=== PATIENT | female | born 1940 | race African-American/Black ===

== ENCOUNTER 2022-12-24 20:02 | Inpatient (IN) | payer BC, MEDICARE ==
[~2022-12-24] VITALS: Ht 165.1 cm; Wt 61.2 kg
[2022-12-24 20:08] VITALS: O2SAT 98
[2022-12-24 20:35] LABS: BASOPHILS % 1.3 % (0.0-2.0); EOSINOPHILS % 3.4 % (0.0-5.0); HEMATOCRIT. 31.2 % (36.0-48.0); HEMOGLOBIN. 9.6 g/dL (12.0-16.0); LYMPHOCYTES % 17.8 % (20.0-50.0); MEAN CORPUSCULAR HEMOGLOBIN 27.9 pg (28.0-32.0); MEAN CORPUSCULAR HGB CONC 30.8 g/dL (31.0-37.0); MEAN CORPUSCULAR VOLUME 90.4 fL (81.0-99.0); MEAN PLATELET VOLUME 7.6 fl (7.4-10.4); MONOCYTES % 8.5 % (2.0-8.0); PLATELET 302 x1000/uL (130-400); RED BLOOD CELL COUNT 3.45 mill/uL (4.2-5.4); RED CELL DISTRIBUTION WIDTH 26.4 % (11.6-14.6); WHITE BLOOD COUNT 4.6 x1000/uL (4.5-11.0)
[2022-12-24 20:44] LABS: ADD RBC MORPHOLOGY YES; DIFFERENTIAL COMMENT 1
[2022-12-24] MEDS ORDERED: TENECTEPLASE 50MG/VIAL IV ONE (20:45)
[2022-12-24 20:55] LABS: ALBUMIN 3.1 g/dL (3.4-5.0); ASPARTATE AMINOTRANSFERASE 37 IU/L (15-37); BILIRUBIN TOTAL 0.5 mg/dL (0.1-1.0); CALCIUM 8.6 mg/dL (8.5-10.1); CARBON DIOXIDE 23 mEq/L (21-32); CHLORIDE 111 mEq/L (98-107); CREATININE 0.9 mg/dL (0.6-1.3); ETHANOL BLOOD < 10 mg/dL (-10); GLUCOSE 131 mg/dL (70-105); INDEX HEMOLYSI 1 (1-3); INDEX ICTERIC 1 (1-4); INDEX LIPEMIC 1 (1-3); NT PRO B-TYPE NATRIURETIC PEP 3053 pg/mL (5-125); POTASSIUM 3.9 mEq/L (3.5-5.1); PROTEIN TOTAL 7.2 g/dL (6.0-8.3); SODIUM 141 mEq/L (136-145); UREA NITROGEN BLOOD 13 mg/dL (7-21)
[2022-12-24 20:59] LABS: INR 1.1; PROTHROMBIN TIME 11.5 sec (9.6-11.0)
[2022-12-24 21:06] LABS: TROPONIN I HIGH SENSITIVITY 350 ng/L (<54)
[2022-12-24 21:15] LABS: ALANINE AMINOTRANSFERASE 45 IU/L (13-61)
[2022-12-24] MEDS ORDERED: *TENECTEPLASE FOR AIS XX SCH (21:45)
[2022-12-24 22:09] LABS: ANISOCYTOSIS 3+; PLATELET ESTIMATE NORMAL
[2022-12-25] VITALS (60 sets, daily range): BP systolic 112–168; BP diastolic 62–121; PULSE 76–112; RESP 11–27; TEMP 97.8–98.9
[2022-12-25 04:36] LABS: CLARITY URINE CLEAR (CLEAR); COLOR URINE YELLOW (YELLOW); GLUCOSE URINE NEGATIVE (NEGATIVE); KETONES URINE NEGATIVE (NEGATIVE); LEUKOCYTE ESTERASE URINE NEGATIVE (NEGATIVE); NITRITE URINE NEGATIVE (NEGATIVE); OCCULT BLOOD URINE NEGATIVE (NEGATIVE); PH URINE 6.5 (4.5-8.0); PROTEIN URINE NEGATIVE (NEGATIVE); SPECIFIC GRAVITY URINE 1.047 (1.005-1.030)
[2022-12-25 05:23] LABS: *AMPHETAMINES SCREEN URINE NEGATIVE (NEGATIVE); *BARBITURATES SCREEN URINE NEGATIVE (NEGATIVE); *BENZODIAZEPINES SCREEN URINE NEGATIVE (NEGATIVE); *COCAINE SCREEN URINE NEGATIVE (NEGATIVE); CANNABINOID URINE SCREEN NEGATIVE (NEGATIVE); ECSTASY MDMA SCREEN URINE NEGATIVE (NEGATIVE); METHADONE URINE SCREEN NEGATIVE (NEGATIVE); OPIATES URINE SCREEN NEGATIVE (NEGATIVE); PHENCYCLIDINE URINE SCREEN NEGATIVE (NEGATIVE)
[2022-12-25] MEDS ORDERED: ACETAMINOPHEN 325MG TABLET PO PRN (12:00)
[2022-12-25] MEDS ORDERED: IPRATROPIUM/ALBUTEROL 0.5-3(2.5)MG/3ML NEB HHN PRN (12:00)
[2022-12-25] MEDS ORDERED: DOCUSATE SODIUM 100MG CAPSULE PO PRN (12:00)
[2022-12-25] MEDS ORDERED: ONDANSETRON HCL 4MG/2ML INJ IV PRN (12:00)
[2022-12-25] MEDS: PANTOPRAZOLE SODIUM 40 MG/VIAL IV SCH (13:42)
[2022-12-25 18:14] LABS: BASOPHILS % 2.7 % (0.0-2.0); EOSINOPHILS % 1.9 % (0.0-5.0); HEMATOCRIT. 31.4 % (36.0-48.0); HEMOGLOBIN. 9.9 g/dL (12.0-16.0); LYMPHOCYTES % 15.4 % (20.0-50.0); MEAN CORPUSCULAR HGB CONC 31.7 g/dL (31.0-37.0); MEAN CORPUSCULAR VOLUME 88.4 fL (81.0-99.0); MEAN PLATELET VOLUME 8.2 fl (7.4-10.4); MONOCYTES % 4.8 % (2.0-8.0); NEUTROPHILS % 75.2 % (40.0-76.0); PLATELET 296 x1000/uL (130-400); RED BLOOD CELL COUNT 3.55 mill/uL (4.2-5.4); RED CELL DISTRIBUTION WIDTH 25.9 % (11.6-14.6)
[2022-12-25 18:15] LABS: DIFFERENTIAL COMMENT 1
[2022-12-25 18:28] LABS: CHLORIDE 108 mEq/L (98-107); INDEX HEMOLYSI 1 (1-3); INDEX ICTERIC 1 (1-4); INDEX LIPEMIC 1 (1-3); SODIUM 138 mEq/L (136-145)
[2022-12-25 18:45] LABS: CALCIUM 8.8 mg/dL (8.5-10.1); CARBON DIOXIDE 23 mEq/L (21-32); CHOLESTEROL 160 mg/dL (<200); CREATINE KINASE 51 IU/L (26-192); CREATINE KINASE MB FRACTION < 1.0 ng/mL (0.5-3.6); CREATININE 0.8 mg/dL (0.6-1.3); FOLIC ACID (FOLATE) SERUM 18.8 ng/mL (>5.38); GLUCOSE 100 mg/dL (70-105); HDL CHOLESTEROL 59 mg/dL (40-59); IRON 50 ug/dL (50-175); LDL CHOLESTEROL 94 mg/dL (5-100); TOTAL IRON BINDING CAPACITY 292 ug/dL (250-450); TRIGLYCERIDE 91 mg/dL (0-150); UREA NITROGEN BLOOD 9 mg/dL (7-21)
[2022-12-25 20:18] LABS: TROPONIN I HIGH SENSITIVITY 210 ng/L (<54)
[2022-12-25] MEDS ORDERED: ATORVASTATIN CALCIUM 40MG TABLET PO SCH (21:00)
[2022-12-25] MEDS ORDERED: FAMOTIDINE 20MG TABLET PO SCH (21:00)
[2022-12-26] VITALS (22 sets, daily range): BP systolic 122–171; BP diastolic 49–103; PULSE 81–97; RESP 4–21; TEMP 97.8–98.8
[2022-12-26] MEDS: PANTOPRAZOLE SODIUM 40 MG/VIAL IV SCH (10:09)
[2022-12-26 12:38] LABS: INR 1.1; PROTHROMBIN TIME 11.4 sec (9.6-11.0)
[2022-12-26 12:40] LABS: CHLORIDE 107 mEq/L (98-107); INDEX HEMOLYSI 1 (1-3); INDEX ICTERIC 1 (1-4); INDEX LIPEMIC 1 (1-3); POTASSIUM 3.4 mEq/L (3.5-5.1); SODIUM 138 mEq/L (136-145)
[2022-12-26 12:42] LABS: CALCIUM 8.6 mg/dL (8.5-10.1)
[2022-12-26 12:51] LABS: CARBON DIOXIDE 24 mEq/L (21-32); CREATININE 0.8 mg/dL (0.6-1.3); GLUCOSE 126 mg/dL (70-105); UREA NITROGEN BLOOD 9 mg/dL (7-21)
[2022-12-26 12:55] LABS: TROPONIN I HIGH SENSITIVITY 164 ng/L (<54)
[2022-12-26 12:59] LABS: HEMATOCRIT. 30.8 % (36.0-48.0); HEMOGLOBIN. 9.8 g/dL (12.0-16.0); MEAN CORPUSCULAR HEMOGLOBIN 28.3 pg (28.0-32.0); MEAN CORPUSCULAR VOLUME 88.4 fL (81.0-99.0); MEAN PLATELET VOLUME 8.1 fl (7.4-10.4); PLATELET 268 x1000/uL (130-400); RED BLOOD CELL COUNT 3.48 mill/uL (4.2-5.4); WHITE BLOOD COUNT 5.7 x1000/uL (4.5-11.0)
[2022-12-26 13:36] LABS: DIFFERENTIAL COMMENT 1
[2022-12-26 13:40] LABS: ANISOCYTOSIS 2+; PLATELET ESTIMATE NORMAL; TARGET CELLS FEW
[2022-12-26] MEDS: ASPIRIN 81MG TABLET PO SCH (14:21)
[2022-12-26] MEDS: CLOPIDOGREL 75MG TABLET PO SCH (14:21)
[2022-12-26] MEDS: ACETAMINOPHEN 325MG TABLET PO PRN ×2 (17:43→20:57)
[2022-12-26] MEDS: ATORVASTATIN CALCIUM 40MG TABLET PO SCH (20:56)
[2022-12-27] VITALS: BP 148/75; PULSE 80; RESP 18; TEMP 97.9
[2022-12-27 04:00] VITALS: BP 148/86; PULSE 90; RESP 18; TEMP 98.2
[2022-12-27 08:00] VITALS: BP 142/100; PULSE 94; RESP 20; TEMP 97.1
[2022-12-27] MEDS: ASPIRIN 81MG TABLET PO SCH (08:56)
[2022-12-27] MEDS: PANTOPRAZOLE SODIUM 40 MG/VIAL IV SCH (08:56)
[2022-12-27] MEDS: CLOPIDOGREL 75MG TABLET PO SCH (08:57)
[2022-12-27] MEDS: ACETAMINOPHEN 325MG TABLET PO PRN (08:57)
[2022-12-27 12:00] VITALS: BP 154/81; PULSE 90; RESP 20; TEMP 99.3
[2022-12-27 16:00] VITALS: BP 165/94; PULSE 94; RESP 20; TEMP 98.1
[2022-12-27] MEDS: AMLODIPINE 5MG TABLET PO SCH (19:30)
[2022-12-27 20:00] VITALS: BP 163/84; PULSE 98; RESP 16; TEMP 97.7
[2022-12-27] MEDS: ATORVASTATIN CALCIUM 40MG TABLET PO SCH (21:04)
[2022-12-28] VITALS: BP 148/85; PULSE 101; RESP 15; TEMP 97.9
[2022-12-28 04:00] VITALS: BP 133/66; PULSE 97; RESP 17; TEMP 98.5
[2022-12-28 06:47] VITALS: BP 133/66; PULSE 97; RESP 17; TEMP 98.5
[2022-12-28] MEDS: PANTOPRAZOLE SODIUM 40 MG/VIAL IV SCH (09:17)
[2022-12-28 09:19] VITALS: BP 150/86; PULSE 85; RESP 18; TEMP 98.2
[2022-12-28] MEDS: ASPIRIN 81MG TABLET PO SCH (09:29)
[2022-12-28] MEDS: CLOPIDOGREL 75MG TABLET PO SCH (09:30)
[2022-12-28] MEDS: AMLODIPINE 5MG TABLET PO SCH (09:30)
[2022-12-28] MEDS: ACETAMINOPHEN 325MG TABLET PO PRN (09:31)
[2022-12-28 12:13] LABS: HEMATOCRIT. 29.7 % (36.0-48.0); HEMOGLOBIN. 9.5 g/dL (12.0-16.0); MEAN CORPUSCULAR HEMOGLOBIN 28.6 pg (28.0-32.0); MEAN CORPUSCULAR HGB CONC 32.1 g/dL (31.0-37.0); MEAN CORPUSCULAR VOLUME 89.2 fL (81.0-99.0); MEAN PLATELET VOLUME 7.9 fl (7.4-10.4); PLATELET 271 x1000/uL (130-400); RED BLOOD CELL COUNT 3.32 mill/uL (4.2-5.4); RED CELL DISTRIBUTION WIDTH 25.8 % (11.6-14.6); WHITE BLOOD COUNT 6.5 x1000/uL (4.5-11.0)
[2022-12-28 12:38] LABS: DIFFERENTIAL COMMENT 1
[2022-12-28 13:07] LABS: CHLORIDE 103 mEq/L (98-107); INDEX HEMOLYSI 1 (1-3); INDEX ICTERIC 1 (1-4); INDEX LIPEMIC 1 (1-3); POTASSIUM 4.1 mEq/L (3.5-5.1); SODIUM 133 mEq/L (136-145)
[2022-12-28 13:13] LABS: CARBON DIOXIDE 23 mEq/L (21-32); CREATININE 0.8 mg/dL (0.6-1.3); GLUCOSE 204 mg/dL (70-105)
[2022-12-28 15:40] LABS: UREA NITROGEN BLOOD 14 mg/dL (7-21)
[2022-12-28 16:42] LABS: ANISOCYTOSIS 4+; PLATELET ESTIMATE NORMAL
[2022-12-28 20:00] VITALS: BP 147/75; PULSE 96; RESP 20; TEMP 98.7
[2022-12-28] MEDS: ATORVASTATIN CALCIUM 40MG TABLET PO SCH (20:38)
[2022-12-29] VITALS: BP_SYST 139; BP_SYST 140; BP_DIAS 74; BP_DIAS 78; PULSE 79; PULSE 84; RESP 18; RESP 20; TEMP 97.8; TEMP 98.4
[2022-12-29 08:00] VITALS: BP 125/67; PULSE 85; RESP 20; TEMP 98
[2022-12-29] MEDS: PANTOPRAZOLE SODIUM 40 MG/VIAL IV SCH (08:58)
[2022-12-29] MEDS ORDERED: METOPROLOL TARTRATE 50MG TABLET PO SCH (09:00)
[2022-12-29] MEDS ORDERED: AMIODARONE HCL 900 MG in DEXT 5% WATER 482 ML IV SCH (09:00)
[2022-12-29] MEDS: ACETAMINOPHEN 325MG TABLET PO PRN (09:32)
[2022-12-29] MEDS: CLOPIDOGREL 75MG TABLET PO SCH (09:32)
[2022-12-29] MEDS: ASPIRIN 81MG TABLET PO SCH (09:32)
[2022-12-29] MEDS: LOSARTAN POTASSIUM 50 MG TABLET PO SCH (09:32)
[2022-12-29] MEDS: AMIODARONE HCL 200 MG TABLET PO SCH ×2 (09:32→21:00)
[2022-12-29] MEDS: CARVEDILOL 6.25 MG TABLET PO SCH ×2 (09:36→21:00)
[2022-12-29] MEDS: ENOXAPARIN 40MG/0.4ML SYR SUBCUT SCH (09:37)
[2022-12-29 12:00] VITALS: BP 116/71; PULSE 81; RESP 20; TEMP 98.2
[2022-12-29 16:00] VITALS: BP 122/69; PULSE 79; RESP 20; TEMP 98
[2022-12-29 17:23] LABS: HEMOGLOBIN. 9.5 g/dL (12.0-16.0); MEAN CORPUSCULAR HEMOGLOBIN 28.2 pg (28.0-32.0); MEAN CORPUSCULAR HGB CONC 31.5 g/dL (31.0-37.0); MEAN CORPUSCULAR VOLUME 89.5 fL (81.0-99.0); MEAN PLATELET VOLUME 8.2 fl (7.4-10.4); PLATELET 272 x1000/uL (130-400); RED BLOOD CELL COUNT 3.35 mill/uL (4.2-5.4); RED CELL DISTRIBUTION WIDTH 26.3 % (11.6-14.6); WHITE BLOOD COUNT 7.1 x1000/uL (4.5-11.0)
[2022-12-29 17:26] LABS: DIFFERENTIAL COMMENT 1
[2022-12-29 17:27] LABS: CHLORIDE 105 mEq/L (98-107); INDEX HEMOLYSI 1 (1-3); INDEX ICTERIC 1 (1-4); INDEX LIPEMIC 1 (1-3); POTASSIUM 3.5 mEq/L (3.5-5.1); SODIUM 137 mEq/L (136-145)
[2022-12-29 17:31] LABS: CALCIUM 8.6 mg/dL (8.5-10.1); CARBON DIOXIDE 21 mEq/L (21-32); CREATININE 0.7 mg/dL (0.6-1.3); GLUCOSE 91 mg/dL (70-105); UREA NITROGEN BLOOD 12 mg/dL (7-21)
[2022-12-29 18:34] LABS: ANISOCYTOSIS 4+; PLATELET ESTIMATE NORMAL
[2022-12-29 20:00] VITALS: BP 135/69; PULSE 86; RESP 16; TEMP 96.9
[2022-12-29] MEDS ORDERED: CARVEDILOL 6.25 MG TABLET PO SCH (21:00)
[2022-12-29] MEDS: ATORVASTATIN CALCIUM 40MG TABLET PO SCH (21:00)
[2022-12-30] VITALS: BP 145/91; PULSE 88; RESP 16; TEMP 96.9
[2022-12-30 04:00] VITALS: BP 141/80; PULSE 97; RESP 16; TEMP 96.8
[2022-12-30 08:00] VITALS: BP 120/70; PULSE 84; RESP 18; TEMP 97.7
[2022-12-30] MEDS: LOSARTAN POTASSIUM 50 MG TABLET PO SCH (09:00)
[2022-12-30] MEDS: PANTOPRAZOLE SODIUM 40 MG/VIAL IV SCH (09:00)
[2022-12-30] MEDS ORDERED: CARVEDILOL 12.5MG TABLET PO SCH (10:00)
[2022-12-30] MEDS: ENOXAPARIN 40MG/0.4ML SYR SUBCUT SCH (10:00)
[2022-12-30] MEDS: ASPIRIN 81MG TABLET PO SCH (10:31)
[2022-12-30] MEDS: AMIODARONE HCL 200 MG TABLET PO SCH (10:32)
[2022-12-30] MEDS: CLOPIDOGREL 75MG TABLET PO SCH (10:32)
[2022-12-30 12:00] VITALS: BP 100/60; PULSE 73; RESP 18; TEMP 97.5
[2022-12-30 13:04] VITALS: BP 108/60; PULSE 73; TEMP 97.7
== END 2022-12-30 18:10 | disposition home or self-care (01) | DRG 62 ==
LOC: ER 20:02 → MICUSO 22:10 → EDBEDREQ 22:17 → EDBEDREQSVC 22:17 → MICUSO 12-25 09:26 → 8WST 12-26 15:06
PROVIDERS: ADMIT Internal Medicine; ATTEND Internal Medicine
PROC: 3E05317 Introduction of Other Thrombolytic into Peripheral Artery, Percutaneous Approach (ICD-10-PCS; principal; 2022-12-24)
PROC: 4A00X4Z Measurement of Central Nervous Electrical Activity, External Approach (ICD-10-PCS; 2022-12-26)
DX: I63.9 Cerebral infarction, unspecified (principal); I42.0 Dilated cardiomyopathy; I47.20 Ventricular tachycardia, unspecified; I10 Essential (primary) hypertension; D64.9 Anemia, unspecified; R47.01 Aphasia; R77.8 Other specified abnormalities of plasma proteins; E78.5 Hyperlipidemia, unspecified; I27.20 Pulmonary hypertension, unspecified
CPT/HCPCS: 36415; 70496; 70498; 70551; 71045; 80048; 80053; 80061; 80305; 80320; 81003; 82550; 82553; 82607; 82728; 82746; 82962; 83036; 83540; 83550; 83721; 83735; 83880; 84443; 84484; 85025; 93005; 93306; 95816; 97116; 97162; 97165; 99291; C9113; J1650; J2405; J2997; G0480

== ENCOUNTER 2023-10-04 03:51 | Inpatient (IN) | payer BC, MEDICARE ==
[2023-10-04] VITALS (65 sets, daily range): BP systolic 85–144; BP diastolic 58–99; PULSE 79–111; RESP 12–50; TEMP 97.4–98
[~2023-10-04] VITALS: Ht 165.1 cm; Wt 59.6 kg
[2023-10-04 04:14] LABS: BASOPHILS % 0.5 % (0.0-2.0); EOSINOPHILS % 0.3 % (0.0-5.0); HEMATOCRIT. 31.9 % (36.0-48.0); HEMOGLOBIN. 10.3 g/dL (12.0-16.0); LYMPHOCYTES % 16.2 % (20.0-50.0); MEAN CORPUSCULAR HEMOGLOBIN 29.2 pg (28.0-32.0); MEAN CORPUSCULAR HGB CONC 32.3 g/dL (31.0-37.0); MEAN CORPUSCULAR VOLUME 90.5 fL (81.0-99.0); MEAN PLATELET VOLUME 8.1 fl (7.4-10.4); MONOCYTES % 2.7 % (2.0-8.0); NEUTROPHILS % 80.3 % (40.0-76.0); PLATELET 295 x1000/uL (130-400); RED BLOOD CELL COUNT 3.53 mill/uL (4.2-5.4); RED CELL DISTRIBUTION WIDTH 24.3 % (11.6-14.6); WHITE BLOOD COUNT 12.5 x1000/uL (4.5-11.0)
[2023-10-04] MEDS: HEPARIN 5000 UNITS/ML VIAL IV ONE (04:16)
[2023-10-04 04:19] LABS: CHLORIDE 107 mEq/L (98-107); POTASSIUM 4.1 mEq/L (3.5-5.1); SODIUM 139 mEq/L (136-145)
[2023-10-04 04:20] LABS: CALCIUM 9.3 mg/dL (8.7-10.4); CARBON DIOXIDE 19 mEq/L (21-32)
[2023-10-04 04:25] LABS: DIFFERENTIAL COMMENT 1; GLUCOSE 245 mg/dL (70-105); PARTIAL THROMBOPLASTIN TIME 22.8 sec (23.4-31.0); PROTHROMBIN TIME 11.3 sec (9.6-11.0); UREA NITROGEN BLOOD 9 mg/dL (9-23)
[2023-10-04] MEDS ORDERED: FENTANYL CITRATE/PF 50MCG/ML 2ML VIAL ONE (04:28)
[2023-10-04] MEDS ORDERED: EPINEPHRINE 0.1MG/ML (1:10,000) 10ML SYR ONE (04:28)
[2023-10-04] MEDS ORDERED: MIDAZOLAM HCL 2 MG/2 ML VIAL ONE (04:28)
[2023-10-04] MEDS ORDERED: HEPARIN 1000 UNITS/ML 10ML ONE (04:28)
[2023-10-04] MEDS ORDERED: IODIXANOL 320MG/ML 100 ML BOTTLE IV ONE ×2 (04:29→05:10)
[2023-10-04] MEDS ORDERED: LIDOCAINE HCL 1% 20ML VIAL (Pyxis) INJ ONE (04:29)
[2023-10-04] MEDS ORDERED: ATROPINE SULFATE 1MG/10ML SYR ONE (04:29)
[2023-10-04 04:32] LABS: TROPONIN I HIGH SENSITIVITY 101 ng/L (3.0-34)
[2023-10-04] MEDS ORDERED: EPTIFIBATIDE 100 ML IV ONE (05:13)
[2023-10-04] MEDS ORDERED: EPTIFIBATIDE 2 MG/ML 10ML VIAL IV ONE ×2 (05:13→05:20)
[2023-10-04] MEDS ORDERED: TICAGRELOR 90 MG TABLET PO ONE (05:29)
[2023-10-04] MEDS ORDERED: DOCUSATE SODIUM 100MG CAPSULE PO PRN (05:30)
[2023-10-04] MEDS ORDERED: DEXTROSE 50% WATER 50ML SYRINGE IV PRN (05:30)
[2023-10-04] MEDS ORDERED: IPRATROPIUM/ALBUTEROL 0.5-3(2.5)MG/3ML NEB HHN PRN (05:30)
[2023-10-04] MEDS ORDERED: ONDANSETRON HCL 4MG/2ML INJ IV PRN ×2 (05:30→06:00)
[2023-10-04] MEDS: EPTIFIBATIDE 100 ML IV SCH (06:00)
[2023-10-04] MEDS ORDERED: ATROPINE SULFATE 1MG/10ML SYR IV PRN (06:00)
[2023-10-04] MEDS ORDERED: ACETAMINOPHEN 325MG TABLET PO PRN (06:00)
[2023-10-04] MEDS: BLOOD SUGAR DIAGNOSTIC STRIP TEST SCH (07:50)
[2023-10-04] MEDS: CARVEDILOL 6.25 MG TABLET PO SCH (08:14)
[2023-10-04] MEDS: ASPIRIN 81MG EC TABLET PO SCH (08:14)
[2023-10-04] MEDS: CLOPIDOGREL 75MG TABLET PO SCH (08:14)
[2023-10-04] MEDS: SODIUM CHLORIDE 0.45% 1,000 ML IV NR (08:14)
[2023-10-04] MEDS: INSULIN LISPRO 100 UNITS/ML SUBCUT SCH (08:16)
[2023-10-04] MEDS: MORPHINE SULFATE 2 MG/ML CPJ (NOT FOR IM USE) IV PRN (13:11)
[2023-10-04] MEDS: NITROGLYCERIN OINT 1GM/INCH UDPKT TD SCH (13:45)
[2023-10-04] MEDS: FUROSEMIDE 40MG/4ML VIAL IVP NR (16:23)
[2023-10-04] MEDS: ATORVASTATIN CALCIUM 40MG TABLET PO SCH (21:30)
[2023-10-05] VITALS (83 sets, daily range): BP systolic 62–113; BP diastolic 15–71; PULSE 74–102; RESP 14–43; TEMP 97.1–98
[2023-10-05] MEDS: GUAIFENESIN 200MG/10ML SUGAR FREE UDC PO PRN (03:01)
[2023-10-05 06:06] LABS: HEMOGLOBIN 8.2 g/dL (12.0-16.0); MEAN CORPUSCULAR HEMOGLOBIN 29.3 pg (28.0-32.0); MEAN CORPUSCULAR HGB CONC 31.7 g/dL (31.0-37.0); MEAN CORPUSCULAR VOLUME 92.5 fL (81.0-99.0); PLATELET 232 x1000/uL (130-400); RED BLOOD CELL COUNT 2.81 mill/uL (4.2-5.4); RED CELL DISTRIBUTION WIDTH 24.4 % (11.6-14.6)
[2023-10-05 06:15] LABS: CHLORIDE 103 mEq/L (98-107); POTASSIUM 4.4 mEq/L (3.5-5.1); SODIUM 137 mEq/L (136-145)
[2023-10-05 06:16] LABS: CALCIUM 9.7 mg/dL (8.7-10.4); CARBON DIOXIDE 18 mEq/L (21-32)
[2023-10-05 06:21] LABS: GLUCOSE 174 mg/dL (70-105); PROTEIN TOTAL 6.3 g/dL (6.0-8.3); TRIGLYCERIDE 86 mg/dL (0-150); UREA NITROGEN BLOOD 24 mg/dL (9-23)
[2023-10-05 06:22] LABS: LDL CHOLESTEROL 92 mg/dL (5-100); T4 FREE 1.17 ng/dL (0.89-1.76)
[2023-10-05 06:23] LABS: ALANINE AMINOTRANSFERASE 282 IU/L (10-49); ALBUMIN 3.5 g/dL (3.2-4.8); ASPARTATE AMINOTRANSFERASE 740 IU/L (<34); BILIRUBIN TOTAL 1.3 mg/dL (0.1-1.0); CHOLESTEROL 152 mg/dL (<200); HDL CHOLESTEROL 47 mg/dL (>65); PHOSPHORUS 4.9 mg/dL (2.5-4.9); THYROID STIMULATING HORMONE 3.66 uIU/mL (0.55-4.78)
[2023-10-05 06:24] LABS: CREATININE 1.4 mg/dL (0.6-1.0)
[2023-10-05 06:25] LABS: FOLIC ACID (FOLATE) SERUM 9.37 ng/mL (>5.38); VITAMIN B12 SERUM 283 pg/mL (211-911)
[2023-10-05] MEDS: PANTOPRAZOLE 40MG DR TABLET PO SCH (09:03)
[2023-10-05 14:41] LABS: BG BASE EXCESS -4.8 mmol/L (-2.0-2.0); BG CARBOXYHEMOGLOBIN 0.4 % (0.5-1.5); BG DEOXYHEMOGLOBIN 1.6 % (0.0-5.0); BG FRACTION INSPIRED OXYGEN 38; BG HCO3 ACT 18.6 mmol/L (22.0-26.0); BG METHEMOGLOBIN 0.3 % (0.0-1.5); BG OXYGEN SATURATION 98.4 % (92.0-98.5); BG OXYHEMOGLOBIN 97.7 % (94.0-97.0); BG PCO2 28.6 mmHg (35.0-45.0); BG PH 7.432 (7.350-7.450); BG PO2 120.8 mmHg (75.0-100.0); BG SAMPLE SITE RIGHT BRACHIAL; BG TOTAL HEMOGLOBIN 9.2 g/dL (12.0-18.0); BG VENT MODE NASAL CANNULA
[2023-10-06] VITALS (40 sets, daily range): BP systolic 89–120; BP diastolic 24–94; PULSE 83–103; RESP 15–33; TEMP 97.5–97.6
[2023-10-06 05:47] LABS: HEMATOCRIT. 25.9 % (36.0-48.0); HEMOGLOBIN. 8.1 g/dL (12.0-16.0); MEAN CORPUSCULAR HEMOGLOBIN 28.8 pg (28.0-32.0); MEAN CORPUSCULAR HGB CONC 31.2 g/dL (31.0-37.0); MEAN CORPUSCULAR VOLUME 92.2 fL (81.0-99.0); MEAN PLATELET VOLUME 8.5 fl (7.4-10.4); PLATELET 238 x1000/uL (130-400); RED BLOOD CELL COUNT 2.81 mill/uL (4.2-5.4); RED CELL DISTRIBUTION WIDTH 25.1 % (11.6-14.6); WHITE BLOOD COUNT 14.9 x1000/uL (4.5-11.0)
[2023-10-06 06:02] LABS: DIFFERENTIAL COMMENT 1
[2023-10-06 06:07] LABS: POTASSIUM 3.7 mEq/L (3.5-5.1)
[2023-10-06 06:09] LABS: CALCIUM 9.6 mg/dL (8.7-10.4)
[2023-10-06 06:13] LABS: CREATININE 1.1 mg/dL (0.6-1.0)
[2023-10-06] MEDS ORDERED: THROAT LOZENGES-BENZOCAINE/MENTH/CETYLPYRD CL LOZENGES MM PRN (12:15)
[2023-10-06] MEDS: MAGNESIUM 1 G PREMIX 100 ML IV NR (15:58)
[2023-10-06 16:17] LABS: ANISOCYTOSIS 2+; PLATELET ESTIMATE NORMAL
[2023-10-07] VITALS (22 sets, daily range): BP systolic 87–118; BP diastolic 54–99; PULSE 58–107; RESP 15–50; TEMP 97.4–97.8
[2023-10-07 07:11] LABS: HEMATOCRIT 24.6 % (36.0-48.0); MEAN CORPUSCULAR HEMOGLOBIN 29.3 pg (28.0-32.0); MEAN CORPUSCULAR HGB CONC 32.4 g/dL (31.0-37.0); MEAN CORPUSCULAR VOLUME 90.5 fL (81.0-99.0); PLATELET 242 x1000/uL (130-400); RED BLOOD CELL COUNT 2.72 mill/uL (4.2-5.4); RED CELL DISTRIBUTION WIDTH 23.9 % (11.6-14.6); WHITE BLOOD COUNT 13.7 x1000/uL (4.5-11.0)
[2023-10-07 07:30] LABS: CHLORIDE 108 mEq/L (98-107); POTASSIUM 3.8 mEq/L (3.5-5.1); SODIUM 138 mEq/L (136-145)
[2023-10-07 07:31] LABS: CALCIUM 9.5 mg/dL (8.7-10.4); CARBON DIOXIDE 22 mEq/L (21-32)
[2023-10-07 07:36] LABS: GLUCOSE 169 mg/dL (70-105); UREA NITROGEN BLOOD 33 mg/dL (9-23)
[2023-10-07] MEDS ORDERED: EPINEPHRINE 5 MG in SODIUM CHLORIDE 0.9% 245 ML IV PRN (15:00)
[2023-10-07] MEDS: FUROSEMIDE 40MG/4ML VIAL IVP SCH ×2 (15:01→23:50)
[2023-10-07] MEDS ORDERED: NALOXONE HCL 0.4MG/ML VIAL IV PRN (15:45)
[2023-10-08] VITALS (35 sets, daily range): BP systolic 74–122; BP diastolic 46–91; PULSE 68–97; RESP 11–25; TEMP 97.3–98.5
[2023-10-08 05:39] LABS: HEMOGLOBIN. 7.9 g/dL (12.0-16.0); MEAN CORPUSCULAR HEMOGLOBIN 29.5 pg (28.0-32.0); MEAN CORPUSCULAR HGB CONC 31.5 g/dL (31.0-37.0); MEAN CORPUSCULAR VOLUME 93.4 fL (81.0-99.0); MEAN PLATELET VOLUME 8.8 fl (7.4-10.4); PLATELET 228 x1000/uL (130-400); RED BLOOD CELL COUNT 2.68 mill/uL (4.2-5.4); RED CELL DISTRIBUTION WIDTH 23.6 % (11.6-14.6); WHITE BLOOD COUNT 10.8 x1000/uL (4.5-11.0)
[2023-10-08 05:46] LABS: DIFFERENTIAL COMMENT 1
[2023-10-08 06:03] LABS: CHLORIDE 108 mEq/L (98-107); POTASSIUM 3.3 mEq/L (3.5-5.1); SODIUM 140 mEq/L (136-145)
[2023-10-08 06:04] LABS: CALCIUM 8.7 mg/dL (8.7-10.4); CARBON DIOXIDE 23 mEq/L (21-32)
[2023-10-08 06:09] LABS: CREATININE 1.1 mg/dL (0.6-1.0); GLUCOSE 116 mg/dL (70-105); UREA NITROGEN BLOOD 28 mg/dL (9-23)
[2023-10-08] MEDS: KCL 20MEQ/100ML PREMIX 100 ML IV NR (12:46)
[2023-10-08] MEDS: POTASSIUM CHLORIDE 20MEQ TABLET SR PO NR (12:46)
[2023-10-08 16:20] LABS: ANISOCYTOSIS 2+; PLATELET ESTIMATE NORMAL
[2023-10-09] VITALS (47 sets, daily range): BP systolic 79–133; BP diastolic 45–89; PULSE 76–112; RESP 10–29; TEMP 97.1–98.5
[2023-10-09 05:15] LABS: HEMATOCRIT 29.5 % (36.0-48.0); HEMOGLOBIN 9.3 g/dL (12.0-16.0); MEAN CORPUSCULAR HEMOGLOBIN 29.1 pg (28.0-32.0); MEAN CORPUSCULAR HGB CONC 31.6 g/dL (31.0-37.0); MEAN CORPUSCULAR VOLUME 92.2 fL (81.0-99.0); PLATELET 279 x1000/uL (130-400); RED CELL DISTRIBUTION WIDTH 23.4 % (11.6-14.6); WHITE BLOOD COUNT 9.1 x1000/uL (4.5-11.0)
[2023-10-09 05:21] LABS: POTASSIUM 3.8 mEq/L (3.5-5.1)
[2023-10-09 05:22] LABS: CALCIUM 9.2 mg/dL (8.7-10.4)
[2023-10-09 05:27] LABS: CREATININE 1.1 mg/dL (0.6-1.0)
[2023-10-10] VITALS (21 sets, daily range): BP systolic 92–121; BP diastolic 43–77; PULSE 72–90; RESP 10–29; TEMP 95.5–98.5
[2023-10-10 05:17] LABS: POTASSIUM 3.7 mEq/L (3.5-5.1)
[2023-10-10 05:18] LABS: CALCIUM 9.1 mg/dL (8.7-10.4)
[2023-10-10 05:21] LABS: HEMATOCRIT 28.7 % (36.0-48.0); HEMOGLOBIN 9.5 g/dL (12.0-16.0); MEAN CORPUSCULAR HEMOGLOBIN 29.1 pg (28.0-32.0); MEAN CORPUSCULAR VOLUME 88.1 fL (81.0-99.0); PLATELET 307 x1000/uL (130-400); RED BLOOD CELL COUNT 3.26 mill/uL (4.2-5.4); RED CELL DISTRIBUTION WIDTH 23.4 % (11.6-14.6); WHITE BLOOD COUNT 9.1 x1000/uL (4.5-11.0)
[2023-10-10 05:23] LABS: CREATININE 1.2 mg/dL (0.6-1.0)
[2023-10-10] MEDS: SPIRONOLACTONE 25MG TABLET PO SCH (08:33)
[2023-10-10] MEDS: LOSARTAN 25 MG TABLET PO SCH (08:34)
[2023-10-10] MEDS: ACETAMINOPHEN 325MG TABLET PO PRN (15:04)
[2023-10-11] VITALS: BP_SYST 109; BP_SYST 99; BP_DIAS 48; BP_DIAS 63; PULSE 77; PULSE 84; RESP 17; RESP 18; TEMP 96; TEMP 96.3
[2023-10-11 04:00] VITALS: BP 109/63; PULSE 77; RESP 17; TEMP 96.3
[2023-10-11 08:00] VITALS: BP 106/56; PULSE 75; RESP 18; TEMP 98.1
[2023-10-11 12:00] VITALS: BP 103/51; PULSE 84; RESP 17; TEMP 96.9
[2023-10-11 16:00] VITALS: BP 104/45; PULSE 88; RESP 18; TEMP 96.9
[2023-10-11 18:34] LABS: HEMATOCRIT 32.4 % (36.0-48.0); HEMOGLOBIN 10.3 g/dL (12.0-16.0); MEAN CORPUSCULAR HEMOGLOBIN 28.8 pg (28.0-32.0); MEAN CORPUSCULAR HGB CONC 31.9 g/dL (31.0-37.0); MEAN CORPUSCULAR VOLUME 90.3 fL (81.0-99.0); PLATELET 372 x1000/uL (130-400); RED BLOOD CELL COUNT 3.59 mill/uL (4.2-5.4)
[2023-10-11 18:44] LABS: CHLORIDE 104 mEq/L (98-107); POTASSIUM 3.4 mEq/L (3.5-5.1); SODIUM 140 mEq/L (136-145)
[2023-10-11 18:45] LABS: CALCIUM 9.3 mg/dL (8.7-10.4); CARBON DIOXIDE 26 mEq/L (21-32)
[2023-10-11 18:50] LABS: CREATININE 1.2 mg/dL (0.6-1.0); GLUCOSE 110 mg/dL (70-105); UREA NITROGEN BLOOD 31 mg/dL (9-23)
[2023-10-11 18:52] LABS: PHOSPHORUS 3.5 mg/dL (2.5-4.9)
[2023-10-11 20:00] VITALS: BP 135/113; PULSE 61; RESP 19; TEMP 97.3
[2023-10-12] VITALS: BP 98/43; PULSE 86; RESP 22; TEMP 97
[2023-10-12 04:00] VITALS: BP 114/50; PULSE 89; RESP 19; TEMP 97.2
[2023-10-12 08:00] VITALS: BP 96/51; PULSE 87; RESP 17; TEMP 96.9
[2023-10-12 11:12] LABS: CHLORIDE 104 mEq/L (98-107); POTASSIUM 3.3 mEq/L (3.5-5.1); SODIUM 138 mEq/L (136-145)
[2023-10-12 11:13] LABS: CALCIUM 9.4 mg/dL (8.7-10.4); CARBON DIOXIDE 25 mEq/L (21-32)
[2023-10-12 11:18] LABS: CREATININE 1.1 mg/dL (0.6-1.0); GLUCOSE 115 mg/dL (70-105); UREA NITROGEN BLOOD 23 mg/dL (9-23)
[2023-10-12 11:20] LABS: PHOSPHORUS 3.4 mg/dL (2.5-4.9)
[2023-10-12 12:00] VITALS: BP 99/63; PULSE 77; RESP 18; TEMP 97.2
[2023-10-12] MEDS: POTASSIUM CHLORIDE 20MEQ TABLET SR PO NR (12:18)
[2023-10-12 16:00] VITALS: BP 110/62; PULSE 94; RESP 18; TEMP 97.5
[2023-10-12] MEDS ORDERED: FUROSEMIDE 40MG/4ML VIAL IVP SCH (18:00)
[2023-10-12] MEDS: FUROSEMIDE 40MG TABLET PO SCH (18:26)
[2023-10-12 20:00] VITALS: BP 108/56; PULSE 92; RESP 19; TEMP 97.8
[2023-10-13] VITALS (7 sets, daily range): BP systolic 94–109; BP diastolic 46–61; PULSE 64–102; RESP 17–19; TEMP 97.5–98.7
[2023-10-13] MEDS: ZOLPIDEM TARTRATE 5MG TABLET PO PRN (22:06)
[2023-10-14] VITALS (7 sets, daily range): BP systolic 87–169; BP diastolic 43–60; PULSE 69–98; RESP 17–19; TEMP 96.9–98.3
[2023-10-14 09:51] LABS: HEMATOCRIT 30.2 % (36.0-48.0); HEMOGLOBIN 9.5 g/dL (12.0-16.0); MEAN CORPUSCULAR HEMOGLOBIN 28.5 pg (28.0-32.0); MEAN CORPUSCULAR HGB CONC 31.3 g/dL (31.0-37.0); PLATELET 444 x1000/uL (130-400); RED BLOOD CELL COUNT 3.32 mill/uL (4.2-5.4); RED CELL DISTRIBUTION WIDTH 23.4 % (11.6-14.6); WHITE BLOOD COUNT 11.5 x1000/uL (4.5-11.0)
[2023-10-14 09:59] LABS: POTASSIUM 3.4 mEq/L (3.5-5.1)
[2023-10-14 10:01] LABS: CALCIUM 9.2 mg/dL (8.7-10.4)
[2023-10-14 10:05] LABS: CREATININE 1.1 mg/dL (0.6-1.0)
[2023-10-14] MEDS: ENOXAPARIN 30MG/0.3ML SYR SUBCUT SCH (12:26)
[2023-10-15] VITALS: BP 96/49; PULSE 96; RESP 19; TEMP 97.7
[2023-10-15 04:00] VITALS: BP 94/50; PULSE 94; RESP 19; TEMP 97.9
[2023-10-15 08:00] VITALS: BP 101/44; PULSE 95; RESP 20; TEMP 98.3
[2023-10-15] MEDS: POTASSIUM CHLORIDE 20MEQ TABLET SR PO NR (09:42)
[2023-10-15 12:00] VITALS: BP 99/46; PULSE 89; RESP 20; TEMP 98.5
[2023-10-15 16:00] VITALS: BP 99/56; PULSE 89; RESP 20; TEMP 97.2
[2023-10-15 18:24] LABS: CHLORIDE 104 mEq/L (98-107); SODIUM 136 mEq/L (136-145)
[2023-10-15 18:25] LABS: CALCIUM 9.2 mg/dL (8.7-10.4); CARBON DIOXIDE 26 mEq/L (21-32)
[2023-10-15 18:26] LABS: HEMATOCRIT 26.8 % (36.0-48.0); HEMOGLOBIN 8.7 g/dL (12.0-16.0); MEAN CORPUSCULAR HEMOGLOBIN 28.8 pg (28.0-32.0); MEAN CORPUSCULAR HGB CONC 32.3 g/dL (31.0-37.0); MEAN CORPUSCULAR VOLUME 89.1 fL (81.0-99.0); PLATELET 469 x1000/uL (130-400); RED BLOOD CELL COUNT 3.01 mill/uL (4.2-5.4); RED CELL DISTRIBUTION WIDTH 22.6 % (11.6-14.6)
[2023-10-15 18:30] LABS: CREATININE 1.3 mg/dL (0.6-1.0); GLUCOSE 84 mg/dL (70-105); UREA NITROGEN BLOOD 28 mg/dL (9-23)
[2023-10-15 18:32] LABS: PHOSPHORUS 3.1 mg/dL (2.5-4.9)
[2023-10-15 20:00] VITALS: BP 87/42; PULSE 94; RESP 62; TEMP 98.8
[2023-10-16] VITALS: BP 91/52; PULSE 90; RESP 18; TEMP 97.9
[2023-10-16 04:00] VITALS: BP 87/45; PULSE 77; RESP 18; TEMP 97.5
[2023-10-16 08:00] VITALS: BP 115/70; PULSE 76; RESP 20; TEMP 97.4
[2023-10-16] MEDS: FUROSEMIDE 40MG TABLET PO SCH (09:18)
[2023-10-16 12:00] VITALS: BP 105/64; PULSE 84; RESP 18; TEMP 97.6
[2023-10-16 15:36] VITALS: BP 105/62; PULSE 75; TEMP 98.3; O2SAT 100
[2023-10-17] MEDS ORDERED: FUROSEMIDE 20MG TABLET PO SCH (09:00)
== END 2023-10-16 18:25 | disposition home health service (06) | DRG 321 ==
LOC: ER 03:51 → CVICU 04:18 → ER 05:57 → 7WST 10-06 12:43 → CVICU 10-07 15:29 → 7EST 10-10 11:40
PROVIDERS: ADMIT Internal Medicine; ATTEND Internal Medicine
PROC: 027035Z Dilation of Coronary Artery, One Artery with Two Drug-eluting Intraluminal Devices, Percutaneous Approach (ICD-10-PCS; principal; 2023-10-04)
PROC: 02C03ZZ Extirpation of Matter from Coronary Artery, One Artery, Percutaneous Approach (ICD-10-PCS; 2023-10-04)
PROC: 4A023N7 Measurement of Cardiac Sampling and Pressure, Left Heart, Percutaneous Approach (ICD-10-PCS; 2023-10-04)
PROC: B211YZZ Fluoroscopy of Multiple Coronary Arteries using Other Contrast (ICD-10-PCS; 2023-10-04)
PROC: B215YZZ Fluoroscopy of Left Heart using Other Contrast (ICD-10-PCS; 2023-10-04)
DX: I21.09 ST elevation (STEMI) myocardial infarction involving other coronary artery of anterior wall (principal); G92.8 Other toxic encephalopathy; R57.0 Cardiogenic shock; I50.22 Chronic systolic (congestive) heart failure; N17.9 Acute kidney failure, unspecified; I47.20 Ventricular tachycardia, unspecified; I11.0 Hypertensive heart disease with heart failure; E78.5 Hyperlipidemia, unspecified; I25.10 Atherosclerotic heart disease of native coronary artery without angina pectoris; D63.8 Anemia in other chronic diseases classified elsewhere; D72.829 Elevated white blood cell count, unspecified; D50.9 Iron deficiency anemia, unspecified; R73.03 Prediabetes; F17.200 Nicotine dependence, unspecified, uncomplicated; Z86.73 Personal history of transient ischemic attack (TIA), and cerebral infarction without residual deficits; Z79.02 Long term (current) use of antithrombotics/antiplatelets; Z79.82 Long term (current) use of aspirin; Z79.899 Other long term (current) drug therapy
CPT/HCPCS: 36415; 36600; 71045; 80048; 80053; 80061; 82375; 82607; 82746; 82805; 82962; 83036; 83735; 83880; 84100; 84439; 84443; 84484; 85025; 85027; 85044; 85347; 92941; 92973; 93005; 93306; 93458; 93970; 97162; 97164; 97166; 97168; 97530; 97535; 99291; C1725; C1760; C1769; C1874; C1887; C1893; J0461; J1327; J1644; J1650; J1815; J1940; J2250; J2270; J3010; J3475; J3480; J3490; Q9967; J8499